=== PATIENT | male | born 1985 | race Caucasian/White ===

== ENCOUNTER 2022-10-21 15:28 | Outpatient (CLI) | payer BC, SELFPAY ==
--- NOTE | ~2022-10-21 | CT_ITS ---
EXAMINATION: CT abdomen pelvis wo con DATE: 10/21/2022 15:43 INDICATION: Diverticulitis TECHNIQUE: Computed tomography (CT) of the abdomen and pelvis was performed without intravenous contr ast. Automated exposure control and iterative reconstruction technique were employed. The dose-length product was 564.54 mGy-cm. COMPARISON: None FINDINGS: Lung bases are clear. Heart size is normal. No pericardial or pleural effusion. Small sliding-type hi atal hernia. Liver, gallbladder, pancreas, bilateral adrenal glands and kidneys are normal. Wedge-sha ped defect at the cephalad aspect of the spleen likely sequela of chronic trauma or infarct. 3 small diverticula near the splenic flexure of the colon without adjacent from trace stranding to suggest di verticulitis. Small bowel and appendix are normal. There is a small ovoid region along the anterior m argin of the sigmoid colon with thin soft tissue density rim surrounding central fat consistent with age-indeterminate epiploic appendagitis. Bladder and prostate are unremarkable. No free intraperitone al gas or fluid. No pathologically enlarged abdominal or pelvic lymphadenopathy. Right inguinal herni a with small amount of fat extending into the orifice but without significant extension along the rig ht inguinal canal. Very small fat-containing umbilical hernia. Bones are unremarkable. IMPRESSION: 1. Age-indeterminate epiploic appendagitis along the anterior sigmoid colon. No other acute intra-abd ominal/pelvic process. 2. Very small fat-containing umbilical and right inguinal hernias. Reviewed, dictated and finalized at location A. IMPRESSION: 1. Age-indeterminate epiploic appendagitis along the anterior sigmoid colon. No other acute intra-abdominal/pelvic process. 2. Very small fat-containing umbilical and right inguinal hernias.
== END 2022-10-21 15:29 | disposition home or self-care (01) ==
LOC: ANHIMG 15:31
PROVIDERS: PCP Family Medicine; Visit Provider Family Medicine
DX: R10.32 Left lower quadrant pain (principal); K42.9 Umbilical hernia without obstruction or gangrene; K40.90 Unilateral inguinal hernia, without obstruction or gangrene, not specified as recurrent
CPT/HCPCS: 74176

== ENCOUNTER 2024-11-01 08:26 | Outpatient (CLI) | payer BC, SELFPAY ==
--- OUTSIDE RECORDS SUMMARY | 2024-11-01 08:29 | XMS_ITS | Clinical Summary ---
Author Organization [facility] Address Formerly [facility], [facility] [place] [address] Care Team Providers Care Food Service Helper Name Role Phone Scott Salinas MD Primary Care Provider [phone] Allergies No known active allergies Medications cimetidine 200 MG tablet Take 2 tablets by mouth nightly at bedtime. at bedtime. Active Active Problems Problem Noted Date Diagnosed Date Gastroesophageal reflux dise ase with esophagitis without hemorrhage 05/23/2020 Encounters Date Type Department Care Team Description 08/15/2024 Patient Self-Triage [facility] DEFAULT [facility] Provider from Last 3 Months Immunizations Immunization Administration Dates Next Due DT (Generic) 12/13/1990, 8,1986,1985,1986 Fluzone Adult - >Age 3 (Pref illed Syringe) 05/23/2020(Deferred: Patient Refused) Hepatitis B 07/11/1998,02/07/1998,12/26/1997 Hib 07/13/1987 MMR 04/03/1987,1986 Opv 12/13/1990, 8,1986,1985 Td 12/26/1997 Td (Teniva) preservative free 10/06/2013 Family History Medical History Relation Comments Heart Disease Father None Mother Cancer Paternal Grandmother Relation Status Comments Father Alive Mother Paternal Grandfather Alive Paternal Grandmother Social History Tobacco Use Types Packs/Day Years Used Date Smoking Tobacco: Former Smokeless Tobacco: Never Tobacco Cessation:Counseling Given: No Alcohol Use Standard Drinks/Week Comments Yes 5 (1 standard drink = 0.6 oz pur e alcohol) Once a week PHQ-2 Answer Date Recorded PHQ-2 Score - If the patient scores above 3, please move on to questions 3-9 0 05/23/2020 Sex and Gender Information Value Date Recorded Sex Assigned at Not on file Legal Sex Male 7:21 PM CDT Gender Identity Male 08/24/2024 12:47 PM CDT Sexual Orientation Not on file Last Filed Vital Signs Vital Sign Reading Time Taken Comments Blood Pressure 130/88 05/23/2020 9:29 AM COMMERCIAL ILLUSTRATOR Pulse 75 05/23/2020 9:29 AM COMMERCIAL ILLUSTRATOR Temperature 36.5 C (97.7 F) 05/23/2020 9:29 AM COMMERCIAL ILLUSTRATOR Respiratory Rate 16 05/23/2020 9:29 AM COMMERCIAL ILLUSTRATOR Oxygen Saturation 98% 05/23/2020 9:29 AM COMMERCIAL ILLUSTRATOR Inhaled Oxygen Concentration - - Weight 94.3 kg (207 lb 12.8 oz) 05/23/2020 9:29 AM COMMERCIAL ILLUSTRATOR Height 180.3 cm (5' 11) 05/23/2020 9:29 AM COMMERCIAL ILLUSTRATOR Body Mass Index 28.98 05/23/2020 9:29 AM COMMERCIAL ILLUSTRATOR Plan of Treatment Health Maintenance Due Date Last Done Comments Annual Physical 1989 Hepatitis C 01/03/2004 DTaP, Tdap and Td Vaccines (2 - Tdap) 10/07/2013 10/06/2013, 12/26/1997, 12/13/1990, Additional history exists COVID-19 Vaccine ( season) 2023 Hepatitis B Vaccines Completed 07/11/1998, 02/07/1998, 12/26/1997 HPV Vaccines Aged Out No longer eligi ble based on patient's age to complete this topic Meningococcal B Vaccine Aged Out No l onger eligible based on patient's age to complete this topic Meningococcal Vaccine Aged Out No victor m amanda eligible based on patient's age to complete this topic Pneumococcal Vaccine: Pediatrics (0 to 5 Years) and At-Risk Patients (6 to 49 Years) Aged Out No longer eligible based on patient's age to complete this topic RSV Immunizations Under 20 Months Aged Out No longer eligible based on patient's age to complete this topic Procedures Procedure Name Priority Date/Time Associated Diagnosis Comments VITAMIN D, 25 OH Routine 08/24/2024 12:1 0 AM CDT [facility] WITH LIPID Routine 08/24/2024 12:10 AM CDT HEMOGLOBIN, GLYCOSYLATED Routine 08/24/2024 12:10 AM CDT from Last 3 Months Results * (ABNORMAL) [facility] FAIR WITH LIPID (08/24/2024 12:10 AM CDT) Pathologist [facility] WBC 7.87 4.4 - 11.0 x10'3/uL 08/24/2024 7:17 AM CDT [facility] RBC 4.74 4.50 - 5.90 x10'6/uL 08/24/2024 7:17 AM CDT [facility] HGB 14.6 14.0 - 17.5 G/DL 08/24/2024 7:17 AM CDT [facility] HCT 44.0 41.5 - 50.4 % 08/24/2024 7:17 AM CDT [facility] MCV 92.8 80.0 - 96.0 FL 08/24/2024 7:17 AM CDT [facility] MCH 30.8 26.5 - 31.4 PG 08/24/2024 7:17 AM CDT [facility] MCHC 33.2 31.9 - 34.8 G/DL 08/24/2024 7:17 AM CDT [facility] RDW 12.8 12.3 - 14.3 % 08/24/2024 7:17 AM CDT [facility] PLT 287 151 - 353 x10'3/uL 08/24/2024 7:17 AM CDT [facility] MPV 9.4(L) 9.7 - 11.9 FL 08/24/2024 7:17 AM CDT [facility] RBC MORPHOLOGY NORMAL 08/24/2024 7:17 AM [facility] PLT MORPH. NORMAL 08/24/2024 7:17 AM T [facility] WBC MORPHOLOGY NORMAL 08/24/2024 7:17 AM T [facility] LYMPHOCYTES % 39.8 15.8 - 45.0 % 08/24/2024 7:17 AM [facility] NEUTROPHILS % 49.5 42.1 - 71.9 % 08/24/2024 7:17 AM T [facility] MONOCYTES % 8.3 5.7 - 12.5 % 08/24/2024 7:17 AM [facility] EOSINOPHILS 1.4 0.0 - 5.6 % 08/24/2024 7:17 AM [facility] BASOPHILS 0.6 0.0 - 1.3 % 08/24/2024 7:17 AM [facility] ABS. NEUTROPHILS 3.90 1.40 - 6.00 x10'3/uL 08/24/2024 7:17 AM [facility] IMMATURE GRANS % 0.4 0.0 - 0.5 % 08/24/2024 7:17 AM [facility] ABS. LYMPHOCYTES 3.13 0.80 - 4.70 x10'3/uL 08/24/2024 7:17 AM [facility] GLUCOSE 106(H) 70 - 99 MG/DL 08/24/2024 9:02 AM [facility] BUN 15 7 - 18 MG/DL 08/24/2024 9:02 AM [facility] CREATININE S/P/B 0.89 0.7 - 1.3 MG/DL 08/24/2024 9:02 AM [facility] SODIUM S/P/B 141 136 - 145 MMOL/L 08/24/2024 9:02 AM [facility] POTASSIUM S/P/B 4.3 3.5 - 5.1 MMOL/L 08/24/2024 9:02 AM [facility] CHLORIDE S/P/B 104 100 - 108 MMOL/L 08/24/2024 9:02 AM [facility] CO2 29.0 21 - 32 MMOL/L 08/24/2024 9:02 AM [facility] CALCIUM S/P/B 9.2 8.5 - 10.1 MG/DL 08/24/2024 9:02 AM [facility] BILIRUBIN TOTAL S/P/B 0.3 0.2 - 1.2 MG/DL 08/24/2024 9:02 AM [facility] TOTAL PROTEIN S/P/B 7.1 6.4 - 8.2 G/DL 08/24/2024 9:02 AM [facility] ALBUMIN S/P/B 4.0 3.4 - 5.0 G/DL 08/24/2024 9:02 AM [facility] AST 16 15 - 37 U/L 08/24/2024 9:02 AM [facility] ALT 23 16 - 60 U/L 08/24/2024 9:02 AM [facility] ALKALINE PHOSPHATASE S/P/B 55 50 - 136 U/L 08/24/2024 9:02 AM [facility] ANION GAP 8.0 5 - 15 MMOL/L 08/24/2024 9:02 AM [facility] BUN CREATININE RATIO 16.9 6 - 26 08/24/2024 9:02 AM [facility] A/G RATIO 1.3 1.0 - 2.0 RATIO 08/24/2024 9:02 AM [facility] GFR ESTIMATE >90 >90 ML/MIN/1. 73 M2 08/24/2024 9:02 AM [facility] Comment: NOTE: eGFR is not calculated for patients <18 years of age. This is an estimated GFR calculation using the new CKD EPI creatinine equation without race and so does not require a correction factor for race. This estimated GFR should not be used for calculating drug doses. TSH 1.739 0.358 - 3.74 uIU/ML 08/24/2024 9:02 AM [facility] Comment: HIGH DOSES OF BIOTIN MAY INTERFERE WITH THIS TEST RESULT. CORRELATION TO CLINICAL HISTORY AND PRESENTATION RECOMMENDED. CHOLESTEROL 205(H) <200.0 MG/DL 08/24/2024 9:02 AM [facility] TRIGLYCERIDES 123 <150 MG/DL 08/24/2024 9:02 AM [facility] HDL 43 >40.0 MG/DL 08/24/2024 9:02 AM [facility] LDL (CALCULATED) 137(H) <100 MG/DL 08/24/2024 9:02 AM [facility] NON HDL CHOLESTEROL 162(H) <130 MG/DL 08/24/2024 9:02 AM [facility] CHOL/HDL RATIO 4.8(H) 0.0 - 4.5 08/24/2024 9:02 AM [facility] VLDL CALCULATION 25 5 - 55 MG/DL 08/24/2024 9:02 AM [facility] LIPID INTERPRETATION 08/24/2024 9:02 AM [facility] Comment: [facility] REPORT RECOMMENDATIONS: ADULT CHILD LOW RISK: CHOLESTEROL <200 <170 TRIGLYCERIDE <150 --- HDL >=60 --- LDL <100 <110 BORDERLINE: CHOLESTEROL 200-239 170-199 TRIGLYCERIDE 150-199 --- HDL 40-59 --- LDL 100-159 110-129 HIGH RISK: CHOLESTEROL >=240 >=200 TRIGLYCERIDE >=200 --- HDL <40 --- LDL >=160 >=130 08/24/2024 12:1 0 AM CDT us Jermaine Romeo MD LABORATORY Final Result Performing Organization Address [facility] Co de Phone Number [facility] [address] [place] [address], [place] [phone] * HEMOGLOBIN, GLYCOSYLATED (08/24/2024 12:10 AM CDT) HGB A1C 5.4 <5.7 % 08/24/2024 8:08 AM CDT [facility] Comment: INCREASED RISK OF DIABETES <5.7% NON-DIABETES 5.7-6.4% INCREASED RISK FOR FUTURE DIABETES > OR = 6.5 CONSISTENT WITH DIABETES STANDARDS OF MEDICAL CARE IN DIABETES-2010 DIABETES CARE, 33(SUPP 1): S1-S61,2010 ESTIMATED AVG GLUCOSE 108 mg/dL 08/24/2024 8:08 AM CDT [facility] 08/24/2024 12:1 0 AM CDT Jermaine Romeo MD LABORATORY Final Result Performing Organization Address [facility] Co de Phone Number [facility] [address] [place] [address], [place] [phone] * VITAMIN D, 25 OH (08/24/2024 12:10 AM CDT) VITAMIN D 25 HYDROXY S/P/B 37 30 - 100 NG/ML 08/24/2024 9:49 AM CDT [facility] Comment: INTERPRETATION DEFICIENT <20 INSUFFICIENT 20-29 SUFFICIENT 30-100 08/24/2024 12:1 0 AM CDT Jermaine Romeo MD LABORATORY Final Result [facility] [address] [place] [address], [place] [phone] from Last 3 Months Additional Health Concerns Infection Onset Date 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
== END 2024-11-01 08:27 | disposition home or self-care (01) ==
PROVIDERS: PCP Family Medicine; Visit Provider Physician Assistant Medical
DX: M25.50 Pain in unspecified joint (principal); W57.XXXA Bitten or stung by nonvenomous insect and other nonvenomous arthropods, initial encounter
CPT/HCPCS: 36415; 86618